=== PATIENT | female | born 1980 | race Caucasian/White ===

== ENCOUNTER → 2017-11-25 17:14 | Outpatient (CLI) | payer OTHER, SELFPAY ==
--- NOTE | 2017-11-25 17:28 | RAD_ITS ---
STUDY: X-RAY - LUMBAR SPINE REASON FOR EXAM: Female, 37 years old. Pain TECHNIQUE: 5 view(s) of the lumbar spine were obtained. COMPARISON: None FINDINGS: Normal lumbar lordosis. There is no substantial scoliosis. There is a normal alignment of the vertebrae. Normal vertebral bodies. Minimal spurring at the endplates. Normal disc space heights. The soft tissue structures are unremarkable. Probable spinal stimulator at the lower thoracic region. Surgical clips in the right upper quadrant. RAD/L/S Spine Min 4 Views IMPRESSION: No acute bony injury of the lumbar spine. Electronically Signed: Raymundo Benitez DO at 23:53 EDT Tel [phone], Service support ,
== END ==
PROVIDERS: Family Provider Family Medicine; PCP Family Medicine; Visit Provider Nurse Practitioner Family
DX: M54.5 Low back pain (principal)
CPT/HCPCS: 72110

== ENCOUNTER 2017-12-09 13:55 | Emergency (ER) | payer OTHER, SELFPAY ==
[2017-12-09 13:56] VITALS: BP 136/96; PULSE 90; RESP 18; TEMP 36.6; O2SAT 98; BMI 41.7
[2017-12-09 14:44] VITALS: BP 125/78; PULSE 80; RESP 14; O2SAT 98
--- NOTE | 2017-12-09 15:05 | CT_ITS ---
STUDY: CT ABDOMEN AND PELVIS WITH CONTRAST REASON FOR EXAM: Female, 37 years old. Right lower quadrant pain. RADIATION DOSAGE (If Supplied By Facility): CTDIvol = ( 17.08 ) mGy, DLP = ( 1020.99 ) mGycm TECHNIQUE: Transaxial images were obtained from the dome of the diaphragm to the symphysis pubis with oral contrast. 100 ml of Isovue 300 contrast was administered. Sagittal and coronal images were reconstructed. Individualized dose optimization techniques were used for this CT. COMPARISON: December 12, 2014. FINDINGS: The visualized lung bases are unremarkable. The visualized portions of the heart are within normal limits. Normal liver. There are surgical clips in the gallbladder fossa consistent with a prior cholecystectomy. Normal spleen. Normal pancreas. Normal bilateral adrenal glands. Normal right kidney. Normal left kidney. Normal visualized stomach. Normal small intestine. Wall thickening of the right colon. The appendix is visualized and appears normal. Normal abdominal aorta. Normal inferior vena cava. Normal retroperitoneum. Normal urinary bladder. There is absence of the uterus consistent with a prior hysterectomy. There is 2.2 cm left adnexal cyst. Normal abdominal wall. Stimulator device extends to the thoracic spine. No acute osseous abnormality. CT/Abdomen/Pelvis WITH Contrast IMPRESSION: Colitis on the right could be infectious or inflammatory. No obstruction. Normal appendix. Electronically Signed: Cal Ann MD at 17:21 EDT , Service support ,
[2017-12-09] MEDS: HYDROmorphone 1 MG/ML Syringe IV (15:29)
[2017-12-09] MEDS: Ondansetron 4 MG/2 ML Vial IV (15:29)
--- NOTE | 2017-12-09 15:31 | ED.VISSUMM ---
- ER Visit Summary Date of Service: 12/09/17 Patient was signed out to me pending CT scan. CBC and chemistry studies along with LFTs are unremarkable. CT the abdomen and pelvis shows colitis on the right that could be infectious or inflammatory. There is no evidence of obstruction. Normal appendix is noted. After discussion with the patient she does describe her pain being on the right side of the abdomen. She will be treated with a course of Cipro and Flagyl. Urinalysis is still pending at this time, but she will be on Cipro which has good urine coverage. Dr. Valdivia wrote her for pain and nausea medication. I will write her for Cipro and Flagyl. Disposition: Discharge Impression: Colitis This note was generated with [employer] dictation software. It may contain incorrect words, spelling, and punctuation that were not noted in review of the chart prior to signing <PennieClarissa - Last Filed: 12/09/17 17:30> - ER Visit Summary Date of Service: 12/09/17 Chief Complaint: [Abdominal pain] History of Present Illness: The patient is a 37 F [who presents the emergency department with 2 weeks of abdominal pain. She was seen at [facility] had blood work and CAT scan done. There is no clear cause found. The pain is continued it is mostly in the right lower quadrant it is a constant dull ache but occasionally becomes very sharp. She has had severe nausea but no vomiting. Bowel movements have been normal. Her CAT scan at [place] was read as constipation however she does not believe this to be accurate. She saw her primary care doctor today in follow-up and continued to have pain in the right lower quadrant so he referred her back to the emergency department for another CAT scan and GI consultation. She has had no fevers no urinary symptoms she has a history of a partial hysterectomy for endometriosis and a and cholecystectomy.] Physical Examination: [] WN WD NAD PERRL EOMI MMM NECK supple and nontender, no masses RRR no murmur rub or gallop, no peripheral edema, symmetric radial pulses CTAB no respiratory distress ABDOMEN is soft she has mild to moderate tenderness to palpation left upper quadrant right lower quadrant, normal bowel sounds, no distension, no rebound or guarding SKIN is warm and dry no rashes Alert and Oriented x3, CN II-XII in tact, no motor or sensory deficits, gait normal No lymphadenopathy Test Results: [] Emergency Department Course and Treatment: [] Treatment Plan: [] Disposition: [] Impression: [] This note was generated with Ever[employer] dictation software. It may contain incorrect words, spelling, and punctuation that were not noted in review of the chart prior to signing <Arelis Valdivia - Last Filed: 12/17/17 22:26> ED Disposition <Clarissa Casper - Last Filed: 12/09/17 17:30> <Arelis Valdivia - Last Filed: 12/17/17 22:26> - Plan for ED Patient: Disposition: Home or Assisted Living Chief Complaint: Abd Pain Instructions: ED Abdominal Pain Unkn Cause Prescriptions: Hydrocodone Bitart/Apap 5-325 [[place] 5MG-325MG] 1 tablet PO Q6H PRN PRN 2 Days #7 tablet PRN Reason: Pain Ondansetron [Zofran Odt] 4 mg PO Q8H PRN PRN #10 tablet PRN Reason: Nausea Ciprofloxacin [Cipro] 500 mg PO BID #14 tablet Metronidazole [Flagyl] 500 mg PO Q6H #40 tablet Referrals: Lexis Schmidt [Other] Andres Candelaria MD [Primary Care Provider] -
--- NOTE | 2017-12-09 15:34 | ED.DCSUM_ITS ---
- ER Visit Summary Date of Service: 12/09/17 Patient was signed out to me pending CT scan. CBC and chemistry studies along with LFTs are unremarkable. CT the abdomen and pelvis shows colitis on the right that could be infectious or inflammatory. There is no evidence of obstruction. Normal appendix is noted. After discussion with the patient she does describe her pain being on the right side of the abdomen. She will be treated with a course of Cipro and Flagyl. Urinalysis is still pending at this time, but she will be on Cipro which has good urine coverage. Dr. Valdivia wrote her for pain and nausea medication. I will write her for Cipro and Flagyl. Disposition: Discharge Impression: Colitis This note was generated with [employer] dictation software. It may contain incorrect words, spelling, and punctuation that were not noted in review of the chart prior to signing <PennieClarissa - Last Filed: 12/09/17 17:30> - ER Visit Summary Date of Service: 12/09/17 Chief Complaint: [Abdominal pain] History of Present Illness: The patient is a 37 F [who presents the emergency department with 2 weeks of abdominal pain. She was seen at [facility] had blood work and CAT scan done. There is no clear cause found. The pain is continued it is mostly in the right lower quadrant it is a constant dull ache but occasionally becomes very sharp. She has had severe nausea but no vomiting. Bowel movements have been normal. Her CAT scan at [place] was read as constipation however she does not believe this to be accurate. She saw her primary care doctor today in follow-up and continued to have pain in the right lower quadrant so he referred her back to the emergency department for another CAT scan and GI consultation. She has had no fevers no urinary symptoms she has a history of a partial hysterectomy for endometriosis and a and cholecystectomy.] Physical Examination: [] WN WD NAD PERRL EOMI MMM NECK supple and nontender, no masses RRR no murmur rub or gallop, no peripheral edema, symmetric radial pulses CTAB no respiratory distress ABDOMEN is soft she has mild to moderate tenderness to palpation left upper quadrant right lower quadrant, normal bowel sounds, no distension, no rebound or guarding SKIN is warm and dry no rashes Alert and Oriented x3, CN II-XII in tact, no motor or sensory deficits, gait normal No lymphadenopathy Test Results: [] Emergency Department Course and Treatment: [] Treatment Plan: [] Disposition: [] Impression: [] This note was generated with [employer] dictation software. It may contain incorrect words, spelling, and punctuation that were not noted in review of the chart prior to signing <Arelis Valdivia - Last Filed: 12/17/17 22:26> ED Disposition <Clarissa Casper - Last Filed: 12/09/17 17:30> <Arelis Valdivia - Last Filed: 12/17/17 22:26> - Plan for ED Patient: Disposition: Home or Assisted Living Chief Complaint: Abd Pain Instructions: ED Abdominal Pain Unkn Cause Prescriptions: Hydrocodone Bitart/Apap 5-325 [[place] 5MG-325MG] 1 tablet PO Q6H PRN PRN 2 Days # 7 tablet PRN Reason: Pain Ondansetron [Zofran Odt] 4 mg PO Q8H PRN PRN #10 tablet PRN Reason: Nausea Ciprofloxacin [Cipro] 500 mg PO BID #14 tablet Metronidazole [Flagyl] 500 mg PO Q6H #40 tablet Referrals: Lexis Schmidt [Other] Andres Candelaria MD [Primary Care Provider] -
[2017-12-09 15:48] LABS: Absolute Lymphocyte Count 3.37 X10^3/ul (0.83-4.51); Absolute Neutrophil Count 4.6 X10^3/uL (2.0-7.7); Basophil# 0.03 X10^3/uL; Basophil% 0.4 % (0-1); Eosinophils% 1.2 % (0-5); Hematocrit 40.3 % (37-47); Hemoglobin 13.4 g/dl (12.0-15.0); Lymphocyte # 3.37 X10^3/ul (4.0); Lymphocyte % 39.4 % (19-41); Mean Corp Hgb Conc 33.3 g/gl (32-36); Mean Corpuscular Hgb 28.3 pg (27.0-32.0); Mean Corpuscular Volume 85.2 fL (81-99); Mean Platelet Vol. 10.2 fl (6.2-12.0); Monocyte# 0.46 X10^3/uL; Monocyte% 5.4 % (0-10); Neutrophil % 53.6 % (47-70); Platelet Count 363 K/mm3 (150-450); RBC Distribution Width CV 13.1 % (11.6-14.6); RBC Distribution Width SD 40.8 fl (35.1-43.9); Red Blood Count 4.73 M/mm3 (4.2-5.4); White Blood Count 8.6 K/mm3 (4.4-11.0)
[2017-12-09 15:51] LABS: POSITIVE COUNT NO; POSITIVE DIFFERENTIAL NO; POSITIVE MORPHOLOGY NO
[2017-12-09 16:01] LABS: ALB/GLOB Ratio 0.9 RATIO (0.9-2.4); AST(SGOT) 16 U/L (15-37); Alanine Aminotransfer ALT/SGPT 25 U/L (13-56); Albumin, Serum 3.5 g/dL (3.2-5.0); Alkaline Phosphatase 90 U/L (45-117); Anion Gap 8 (5-15); BUN 9 mg/dL (7-18); BUN/Creat Ratio 10.1 RATIO (10-20); Calcium,Total 9.4 mg/dL (8.5-10.1); Chloride 111 mmol/L (98-107); Creatinine, Serum 0.89 mg/dL (0.55-1.02); EST Glomerular Filtration Rate 76 mL/min (>60); Est Glom Filt Rate - Afr Amer 92 mL/min (>60); Estimated Creatinine Clearance 75.46 ml/min; Glucose 87 mg/dL (74-106); Lipase 216 U/L (73-393); Potassium 4.1 mmol/L (3.5-5.1); Protein, Total 7.5 g/dL (6.4-8.2); Sodium Level 140 mmol/L (136-145)
[2017-12-09 16:38] VITALS: BP 129/80; PULSE 80; RESP 14; O2SAT 99
--- NOTE | 2017-12-09 16:46 | DCINST.ED_ITS ---
ED Disposition - Plan for ED Patient: Chief Complaint: Abd Pain Instructions: ED Abdominal Pain Unkn Cause Prescriptions: Hydrocodone Bitart/Apap 5-325 [[place] 5MG-325MG] 1 tablet PO Q6H PRN PRN 2 Days # 7 tablet PRN Reason: Pain Ondansetron [Zofran Odt] 4 mg PO Q8H PRN PRN #10 tablet PRN Reason: Nausea Referrals: Andres Candelaria MD [Primary Care Provider] - Lexis Schmidt [Other]
[2017-12-09 17:30] LABS: Color, Urine Yellow (Yellow); Glucose, Dipstick Normal (Normal); Ketone-Dipstick Negative (Negative); Leukocyte Esterase-Dipstick 500 /ul (Negative); Nitrite-Dipstick Negative (Negative); Occult Blood-Urine 10 /ul (Negative); Protein-Dipstick 30 mg/dl (Negative); Specific Gravity, Urine 1.015 (1.002-1.030); Urine Bilirubin Dipstick Negative (Negative); Urine Clarity Cloudy (Clear); Urine Urobilinogen Normal (Normal); Urine pH 6.5 (5.0 - 8.0)
--- NOTE | 2017-12-09 17:32 | ED.DEP ---
ED Disposition - Plan for ED Patient: Chief Complaint: Abd Pain Instructions: ED Abdominal Pain Unkn Cause Prescriptions: Hydrocodone Bitart/Apap 5-325 [[place] 5MG-325MG] 1 tablet PO Q6H PRN PRN 2 Days #7 tablet PRN Reason: Pain Ondansetron [Zofran Odt] 4 mg PO Q8H PRN PRN #10 tablet PRN Reason: Nausea Ciprofloxacin [Cipro] 500 mg PO BID #14 tablet Metronidazole [Flagyl] 500 mg PO Q6H #40 tablet Referrals: Lexis Schmidt [Other] Andres Candelaria MD [Primary Care Provider] -
[2017-12-09] MEDS: Ciprofloxacin 500 MG Tablet PO (17:43)
[2017-12-09] MEDS: metroNIDAZOLE 500 MG Tablet PO (17:43)
[2017-12-09 17:44] VITALS: BP 126/94; PULSE 79; RESP 16; O2SAT 99
--- NOTE | 2017-12-09 17:51 | ED.RN ---
pt reports was asking for another dose of dilaudid and had not been given. IV now removed and pt states she has percocet at home she takes and cannot get norco filled
[2017-12-09 17:53] LABS: Bacteria 2+ /hpf (None Seen); Mucous, Urine 1+ /hpf (<or=2+); Red Blood Cells-Urine 0-5 SEEN /hpf (0-5); Squamous Epithelial Cells - UA 10-25 SEEN /hpf (5-10); White Blood Cells 25-50 SEEN /hpf (0-5)
== END 2017-12-09 17:52 | disposition home or self-care (01) ==
LOC: ED 15:38
PROVIDERS: Emergency Provider Emergency Medicine; Family Provider Family Medicine; PCP Family Medicine
DX: K52.9 Noninfective gastroenteritis and colitis, unspecified (principal); E66.9 Obesity, unspecified; Z79.899 Other long term (current) drug therapy
CPT/HCPCS: 74177; 80053; 81001; 83690; 85025; 96374; 96375; 99284; Q9967; A4216; J2405

== ENCOUNTER → 2024-03-08 | Outpatient (CLI) | payer OTHER, SELFPAY ==
--- NOTE | 2024-03-08 13:10 | RAD_ITS ---
STUDY: X-RAY - LUMBOSACRAL SPINE REASON FOR EXAM: Female, 43 years old. DDD LUMBAR REGION M51.37 TECHNIQUE: 7 view(s) of the lumbosacral spine were obtained. COMPARISON: Lumbar spine x-ray dated November 25, 2017 FINDINGS: Normal lumbar lordosis. There is no substantial scoliosis. There is normal alignment of the vertebrae. Mild multilevel disc space narrowing is present. No visualized fracture or compression deformity. Spinal stimulating device redemonstrated. Normal bilateral sacral ala, sacroiliac joints, and visualized sacrum. Normal visualized soft tissue structures. RAD/L/S Spine Comp/w Bending Views IMPRESSION: Degenerative changes of the spine, as detailed above. Electronically Signed: Justin Natarajan MD at 14:45 EDT ,
--- NOTE | 2024-03-08 13:15 | RAD_ITS ---
INDICATION: SCS LEAD EVAL EXAMINATION/TECHNIQUE: X-RAY - XR Spine Thoracic 3 Views COMPARISON: FINDINGS: VERTEBRAE: Preserved vertebral body height. Mild spurring at the vertebral endplates. No fracture. No spondylolisthesis. Preservation of the normal thoracic kyphosis. No significant facet arthropathy. Spinal stimulator electrodes in the T9 and T10 thoracic levels. DISCS: Disc spaces are maintained. INCLUDED CHEST/ABDOMEN: No acute abnormalities. RAD/Thoracic Spine Min 4 Views IMPRESSION: No evidence of thoracic spinal fracture or spondylolisthesis. Mild degenerative changes. Electronically Signed: Raymundo Benitez DO at 16:49 EDT Reading Location ID and State: [facility] / [place] Tel [phone], Service support ,
== END | disposition home or self-care (01) ==
LOC: RAD 13:03
PROVIDERS: PCP Family Medicine; Referring Provider Anesthesiology Pain Medicine; Visit Provider Anesthesiology Pain Medicine
DX: M51.379 Other intervertebral disc degeneration, lumbosacral region without mention of lumbar back pain or lower extremity pain (principal)
CPT/HCPCS: 72074; 72114